=== PATIENT | female | born 1960 | race Caucasian/White ===

== ENCOUNTER 2016-09-01 15:21 | Day surgery (SDC) | payer OTHER ==
[~2016-09-01] VITALS: Ht 167.6 cm; Wt 92.8 kg
[2016-09-01] MEDS ORDERED: ATENOLOL (16:10)
[2016-09-01] MEDS ORDERED: SPIRIVA (16:10)
[2016-09-01] MEDS ORDERED: NAPROXEN (16:10)
[2016-09-01] MEDS ORDERED: CELEXA (16:10)
[2016-09-01] MEDS ORDERED: GEMFIBROZIL (16:10)
[2016-09-01] MEDS ORDERED: OMEPRAZOLE (16:10)
[2016-09-01] MEDS ORDERED: IBUPROFEN (16:10)
[2016-09-01 16:19] VITALS: Ht 167.6 cm; Wt 92.8 kg
[2016-09-01] MEDS ORDERED: LIDOCAINE 2% (SDV) 5 ML INJ ONE (16:50)
[2016-09-01] MEDS ORDERED: PROPOFOL 20 ML ONE ×2 (16:50→17:40)
[2016-09-01] MEDS ORDERED: MIDAZOLAM 1 MG/ML 2 ML INJ ONE (16:51)
[2016-09-01 16:57] VITALS: BP 140/67; PULSE 69; RESP 24
[2016-09-01 18:02] VITALS: BP 142/76; PULSE 65; RESP 18
--- NOTE | 2016-09-02 03:05 | GILP ---
DATE OF PROCEDURE: 09/01/2016 NAME OF PROCEDURES: 1. Esophagogastroduodenoscopy and biopsy. 2. Colonoscopy and biopsy. SURGEON: Mckenna Dillard MD PREOPERATIVE DIAGNOSES: 1. Abdominal pain. 2. Change in the bowel habit. 3. Rectal bleeding. POSTOPERATIVE DIAGNOSES: 1. Gastroesophageal reflux disease. 2. Gastritis with erosions. 3. Gastric mucosal biopsies were taken for Helicobacter pylori test. 4. Colonoscopy all the way to the cecum. 5. Small rectal polyp was removed using the biopsy forceps. 6. Internal hemorrhoids. INDICATION FOR THE PROCEDURE: Ms. Zuleyma Ye is a 56-year-old female patient who had upper abdominal pain and chronic heartburn, not responding to therapy. The patient also had change in the bowel habit and occasional rectal bleeding. The patient was scheduled for endoscopy and colonoscop y for further evaluation. The procedures and possible complications were well explained to the patient. She understood and co nsented to the procedure. DESCRIPTION OF PROCEDURE: Under the influence of anesthesia, the gastroscope was carefully introduc ed into the esophagus, and under direct vision, it was advanced to the stomach and through the pylor us into the duodenal bulb and descending duodenum. FINDINGS: ESOPHAGUS: The patient had gastroesophageal reflux disease. STOMACH: She had gastritis. Gastric mucosal biopsies were taken for H. pylori test. DUODENUM: Normal. The colonoscope was carefully introduced in the rectum, and under direct vision, it was advanced all the way to the cecum. FINDINGS: The patient had a small rectal polyp, and it was removed using the biopsy forceps. She w as noted to have internal hemorrhoids. She tolerated the procedures very well, and there was no complication from the procedures. At the e nd of the procedures, she was awake with stable vital signs, and she was discharged home to the care of her family. IMPRESSION: 1. Gastroesophageal reflux disease. 2. Gastritis with erosions. 3. Gastric mucosal biopsies were taken for Helicobacter pylori test. 4. Colonoscopy all the way to the cecum. 5. Small rectal polyp was removed using the biopsy forceps. 6. Internal hemorrhoids. PLAN: 1. Continue omeprazole. 2. Add Zantac 300 mg p.o. at bedtime. 3. Await histopathology reports. 4. Next screening colonoscopy in 10 years. Dictated By: MCKENNA LESTER/GRIS Conf#: [id number] [facility]#: [id number]
== END 2016-09-01 18:12 | disposition home or self-care (01) ==
LOC: GIL 15:21
PROVIDERS: ATTEND Internal Medicine Gastroenterology
DX: R19.4 Change in bowel habit (principal); K21.9 Gastro-esophageal reflux disease without esophagitis; K62.1 Rectal polyp; K29.60 Other gastritis without bleeding; K64.8 Other hemorrhoids; I10 Essential (primary) hypertension; J45.909 Unspecified asthma, uncomplicated
CPT/HCPCS: 43239; 45380; 87081; 88305; J2250; Z7610